=== PATIENT | male | born 1965 | race Caucasian/White ===

== ENCOUNTER 2018-04-05 19:48 | Emergency (ER) | payer MEDICAID ==
[~2018-04-05] VITALS: Ht 177.8 cm; Wt 100.0 kg
[~2018-04-05 19:48] MED LIST: ASPI-621 PO; ATOR40TA78 PO; GABA600T PO; GLIP5TAB10 PO; LISI5TAB7 PO; LOVA10TA PO; METF850T2 PO; NICO-485 TD
[2018-04-05] MEDS ORDERED: DIPHENHYDRAMINE 50 MG/ML, 1ML IVPush ONE (20:00)
[2018-04-05] MEDS ORDERED: METOCLOPRAMIDE 5 MG/ML, 2ML IVPush ONE (20:00)
[2018-04-05] MEDS ORDERED: SODIUM CHLORIDE 0.9% 1,000ML IVBOLUS ONE (20:00)
[2018-04-05] MEDS ORDERED: DIPHENHYDRAMINE 50 MG/ML, 1ML ONE (20:08)
[2018-04-05] MEDS ORDERED: METOCLOPRAMIDE 5 MG/ML, 2ML ONE (20:08)
[2018-04-05 20:17] LABS: BASOPHILS # (AUTO) 0.03 x10^3/uL (0-0.1); BASOPHILS % (AUTO) 0 % (0-1); EOSINOPHILS # (AUTO) 0.18 x10^3/uL (0-0.4); EOSINOPHILS % (AUTO) 2 % (1-7); LYMPHOCYTES % (AUTO) 21 % (22-44); MD NO; MEAN CORPUSCULAR HEMOGLOBIN 31.8 pg (27.5-34.5); MEAN CORPUSCULAR HGB CONC 33.7 g/dL (33.2-36.2); MEAN CORPUSCULAR VOLUME 94.4 fL (81-97); MEAN PLATELET VOLUME 9.7 fL (7.4-10.4); MONOCYTES # (AUTO) 0.74 x10^3/uL (0.2-0.8); MONOCYTES % (AUTO) 7 % (2-9); NEUTROPHILS % (AUTO) 70 % (42-75); PLATELET COUNT 183 x10^3/uL (130-400); RED BLOOD COUNT 5.39 x10^6/uL (4.38-5.82); RED CELL DISTRIBUTION WIDTH 13.2 % (9.4-14.8)
[2018-04-05 20:26] LABS: ALBUMIN 3.4 g/dL (3.4-5.0); ANION GAP 8 mmol/L (5-15); CALCIUM 8.7 mg/dL (8.5-10.1); CHLORIDE 106 mmol/L (98-107)
[2018-04-05 20:29] LABS: TROPONIN I < 0.015 ng/mL (0.000-0.045)
[2018-04-05] MEDS ORDERED: MORPHINE SULFATE 4 MG/ML, 1ML IVPush ONE (20:30)
[2018-04-05] MEDS ORDERED: MORPHINE SULFATE 4 MG/ML, 1ML ONE (20:37)
[2018-04-05] MEDS ORDERED: METHOCARBAMOL 750 MG TABLET PO ONE (21:00)
[2018-04-05] MEDS ORDERED: METHOCARBAMOL 750 MG TABLET ONE (21:02)
[2018-04-05 21:35] VITALS: BP 151/76
== END 2018-04-05 21:53 | disposition home or self-care (01) ==
LOC: ED 21:10
DX: S16.1XXA Strain of muscle, fascia and tendon at neck level, initial encounter (principal); M25.512 Pain in left shoulder; E78.5 Hyperlipidemia, unspecified; I10 Essential (primary) hypertension; E11.9 Type 2 diabetes mellitus without complications; X58.XXXA Exposure to other specified factors, initial encounter; Y93.89 Activity, other specified; Y99.8 Other external cause status; Y92.89 Other specified places as the place of occurrence of the external cause
CPT/HCPCS: 36415; 80048; 82040; 84484; 85025; 93005; 96374; 96375; 99285; J1200; J2765; J7030

== ENCOUNTER 2019-08-16 11:50 | Emergency (ER) | payer MEDICAID ==
[~2019-08-16] VITALS: Ht 175.3 cm; Wt 98.0 kg
[~2019-08-16 11:50] MED LIST changes: -ASPI-621 PO; +ASPI81TA45 PO; +BUTA1CAP5 PO; +DIVA500T17 PO; +FENO48TA17 PO; +LORA0.5T PO; +METF850T10 PO; -METF850T2 PO; +TRAZ50TA66 PO
[2019-08-16 12:35] LABS: BASOPHILS # (AUTO) 0.04 x10^3/uL (0-0.1); BASOPHILS % (AUTO) 1 % (0-1); EOSINOPHILS # (AUTO) 0.23 x10^3/uL (0-0.4); EOSINOPHILS % (AUTO) 3 % (1-7); LYMPHOCYTES # (AUTO) 1.72 x10^3/uL (1-3.4); LYMPHOCYTES % (AUTO) 22 % (22-44); MD NO; MEAN CORPUSCULAR HEMOGLOBIN 32.7 pg (27.5-34.5); MEAN CORPUSCULAR HGB CONC 33.3 g/dL (33.2-36.2); MEAN CORPUSCULAR VOLUME 98.1 fL (81-97); MEAN PLATELET VOLUME 9.9 fL (7.4-10.4); MONOCYTES # (AUTO) 0.65 x10^3/uL (0.2-0.8); MONOCYTES % (AUTO) 8 % (2-9); NEUTROPHILS % (AUTO) 66 % (42-75); PLATELET COUNT 172 x10^3/uL (130-400); RED BLOOD COUNT 5.83 x10^6/uL (4.38-5.82)
[2019-08-16 12:48] LABS: CHLORIDE 102 mmol/L (98-107)
[2019-08-16 12:54] LABS: ALBUMIN 3.7 g/dL (3.4-5.0); ANION GAP 5 mmol/L (5-15); CALCIUM 8.9 mg/dL (8.5-10.1); CREATININE 1.23 mg/dL (0.7-1.3)
--- NOTE | 2019-08-16 13:30 | NUR ---
COUTIERIER: PT IN CT, CT AWARE PT IS TO GO TO ROOM 4
--- NOTE | 2019-08-16 13:40 | NUR ---
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
--- NOTE | 2019-08-16 13:52 | NUR ---
53Y M COMES IN FOR DIZZINESS FOR LAST TWO DAYS, PT REPORTS HX OF CVA AND NEUROPATHY. PT STS VILLAGRAN 10/10 SHARP PAIN. PT A/O 4 CALL LIGHT WITHIN REACH. CONNECTED TO ALL MONITORS, VSJamin DESAI
[2019-08-16 13:53] VITALS: BP 127/84
== END 2019-08-16 14:52 | disposition home or self-care (01) ==
LOC: ED 14:45
DX: R42 Dizziness and giddiness (principal); R51 Headache; E11.9 Type 2 diabetes mellitus without complications; I10 Essential (primary) hypertension; F17.200 Nicotine dependence, unspecified, uncomplicated; E78.5 Hyperlipidemia, unspecified; R20.0 Anesthesia of skin
CPT/HCPCS: 36415; 70450; 80048; 82040; 85025; 93005; 99284

== ENCOUNTER 2019-09-05 12:22 | Emergency (ER) | payer MEDICAID ==
[~2019-09-05] VITALS: Ht 175.3 cm; Wt 105.0 kg
--- NOTE | 2019-09-05 12:33 | NUR ---
BIB [facility]. PT C/O INTERMITTENT R GROIN PAIN X4 DAYS, WORSE TODAY. DENIES INJURY. HX HERNIA WITH UNKNOWN SURGERIES. 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 CONNECTED TO MONITORING. CALL LIGHT IN REACH. AWAITING ORDERS AT THIS TIME.
[2019-09-05] MEDS ORDERED: DIPHENHYDRAMINE 50 MG/ML, 1ML ONE (12:49)
[2019-09-05] MEDS ORDERED: MORPHINE SULFATE 4 MG/ML, 1ML ONE (12:50)
--- NOTE | 2019-09-05 12:57 | NUR ---
MEDS ADMIN PER NOV. PT RESTING ON CUATE. GISELLE. MOM AT BEDSIDE.
[2019-09-05] MEDS ORDERED: DIPHENHYDRAMINE 50 MG/ML, 1ML IVPush ONE (13:00)
[2019-09-05] MEDS ORDERED: MORPHINE SULFATE 4 MG/ML, 1ML IVPush PRN (13:00)
[2019-09-05 13:02] LABS: BASOPHILS # (AUTO) 0.11 x10^3/uL (0-0.1); BASOPHILS % (AUTO) 1 % (0-1); EOSINOPHILS % (AUTO) 2 % (1-7); LYMPHOCYTES # (AUTO) 2.03 x10^3/uL (1-3.4); LYMPHOCYTES % (AUTO) 22 % (22-44); MD NO; MEAN CORPUSCULAR HEMOGLOBIN 32.7 pg (27.5-34.5); MEAN CORPUSCULAR HGB CONC 33.2 g/dL (33.2-36.2); MEAN CORPUSCULAR VOLUME 98.3 fL (81-97); MEAN PLATELET VOLUME 9.2 fL (7.4-10.4); MONOCYTES # (AUTO) 0.72 x10^3/uL (0.2-0.8); MONOCYTES % (AUTO) 8 % (2-9); NEUTROPHILS # (AUTO) 6.19 x10^3/uL (1.8-6.8); NEUTROPHILS % (AUTO) 67 % (42-75); PLATELET COUNT 171 x10^3/uL (130-400); RED BLOOD COUNT 5.52 x10^6/uL (4.38-5.82); RED CELL DISTRIBUTION WIDTH 13.4 % (9.4-14.8)
[2019-09-05 13:11] LABS: ALANINE AMINOTRANSFERASE 38 U/L (12-78); ALBUMIN 3.4 g/dL (3.4-5.0); ANION GAP 8 mmol/L (5-15); CALCIUM 9.2 mg/dL (8.5-10.1); CHLORIDE 104 mmol/L (98-107)
[2019-09-05 13:13] LABS: ALKALINE PHOSPHATASE 99 U/L (45-117); BILIRUBIN,TOTAL 0.7 mg/dL (0.2-1.0); TOTAL PROTEIN 7.9 g/dL (6.4-8.2)
--- NOTE | 2019-09-05 13:33 | NUR ---
URINE COLLECTED AND SENT TO LAB. [facility]
[2019-09-05 14:02] LABS: MICROSCOPIC AUTO
[2019-09-05 14:05] LABS: CULTURE INDICATED? NO
--- NOTE | 2019-09-05 14:19 | NUR ---
PT TO US.
[2019-09-05 15:00] VITALS: BP 126/71
--- NOTE | 2019-09-05 15:00 | NUR ---
PT RESTING ON CUATE. GISELLE. MOM AT BEDSIDE.
--- NOTE | 2019-09-05 15:01 | NUR ---
ALL RESULTS ARE BACK AT THIS TIME. CHART UP FOR RECHECK.
[2019-09-05] MEDS ORDERED: KETOROLAC 30 MG/1 ML ONE (15:21)
--- NOTE | 2019-09-05 15:26 | NUR ---
MEDS ADMIN PER NOV. PT SITTING SIDE OF BED. GISELLE.
[2019-09-05] MEDS ORDERED: KETOROLAC 30 MG/1 ML IVPush ONE (15:30)
--- NOTE | 2019-09-05 16:13 | NUR ---
IV DOCUMENTED TRIPLE LUMEN INCORRECTLY. IV INSERTED WAS PERIPHERAL SINGLE LUMEN
== END 2019-09-05 15:59 | disposition home or self-care (01) ==
LOC: ED 14:51
DX: I86.1 Scrotal varices (principal); R10.31 Right lower quadrant pain; N43.3 Hydrocele, unspecified; I10 Essential (primary) hypertension; E11.9 Type 2 diabetes mellitus without complications
CPT/HCPCS: 36415; 76870; 80053; 81001; 85025; 87491; 87591; 96374; 96375; 99284; J1200; J1885; J2270

== ENCOUNTER 2019-09-12 01:38 | Emergency (ER) | payer MEDICAID ==
[~2019-09-12] VITALS: Ht 175.3 cm; Wt 105.0 kg
[2019-09-12] MEDS ORDERED: MORPHINE SULFATE 4 MG/ML, 1ML ONE ×2 (02:50→04:23)
[2019-09-12] MEDS ORDERED: ONDANSETRON 2MG/ML, 2ML ONE (02:50)
[2019-09-12] MEDS ORDERED: MORPHINE SULFATE 4 MG/ML, 1ML IVPush ONE ×2 (03:00→04:30)
[2019-09-12] MEDS ORDERED: ONDANSETRON 2MG/ML, 2ML IVPush ONE (03:00)
[2019-09-12 03:03] LABS: BASOPHILS # (AUTO) 0.04 x10^3/uL (0-0.1); BASOPHILS % (AUTO) 0 % (0-1); EOSINOPHILS # (AUTO) 0.33 x10^3/uL (0-0.4); EOSINOPHILS % (AUTO) 3 % (1-7); LYMPHOCYTES # (AUTO) 2.79 x10^3/uL (1-3.4); LYMPHOCYTES % (AUTO) 26 % (22-44); MD NO; MEAN CORPUSCULAR HEMOGLOBIN 33.1 pg (27.5-34.5); MEAN CORPUSCULAR HGB CONC 33.6 g/dL (33.2-36.2); MEAN CORPUSCULAR VOLUME 98.5 fL (81-97); MONOCYTES # (AUTO) 0.83 x10^3/uL (0.2-0.8); MONOCYTES % (AUTO) 8 % (2-9); NEUTROPHILS # (AUTO) 6.76 x10^3/uL (1.8-6.8); NEUTROPHILS % (AUTO) 63 % (42-75); PLATELET COUNT 186 x10^3/uL (130-400); RED BLOOD COUNT 5.12 x10^6/uL (4.38-5.82); RED CELL DISTRIBUTION WIDTH 13.6 % (9.4-14.8)
[2019-09-12 03:16] LABS: ANION GAP 5 mmol/L (5-15); CALCIUM 8.3 mg/dL (8.5-10.1); CHLORIDE 101 mmol/L (98-107); CREATININE 1.04 mg/dL (0.7-1.3)
[2019-09-12 03:19] LABS: CREATINE KINASE, TOTAL 65 U/L (39-308)
[2019-09-12] MEDS ORDERED: SODIUM CHLORIDE 0.9%, 500ML IVBOLUS ONE (03:30)
[2019-09-12 06:13] VITALS: BP 144/91
[2019-09-12] MEDS ORDERED: OMNIPAQUE 350 MG/ML, 100ML BOTTLE ONE (20:21)
== END 2019-09-12 06:16 | disposition home or self-care (01) ==
LOC: ED 02:43
DX: M25.551 Pain in right hip (principal); M79.651 Pain in right thigh; R10.2 Pelvic and perineal pain; I10 Essential (primary) hypertension; E11.9 Type 2 diabetes mellitus without complications; F17.210 Nicotine dependence, cigarettes, uncomplicated
CPT/HCPCS: 36415; 75635; 80048; 82550; 85025; 96374; 96375; 96376; 99284; J2270; J2405; J7040; Q9967

== ENCOUNTER 2020-05-08 14:57 | Emergency (ER) | payer MEDICAID ==
[~2020-05-08] VITALS: Ht 175.3 cm; Wt 92.0 kg
[~2020-05-08 14:57] MED LIST changes: +FENO48TA10 PO; -FENO48TA17 PO
--- NOTE | 2020-05-08 15:06 | NUR ---
PT REFUSED TO CHANGE.
--- NOTE | 2020-05-08 15:06 | NUR ---
LIANET. REPORT RECEIVED FROM EMS. PT C/O LEFT LEG PAIN/SWELLING. PT HAD BACK SURGERY X 2 IN JANUARY. UNABLE TO AMB SINCE BACK SURGERY. PT USES WALKER/WHEELCHAIR AT HOME. PT DENIES ANY OTHER SX. PT'S AOX4. RESPS EVEN AND UNLABORED. BP/SPO2 MONITORS IN PLACE. CALL LIGHT WITHIN REACH.
--- NOTE | 2020-05-08 15:13 | NUR ---
PA AT BEDSIDE EVALUATING AT THIS TIME.
[2020-05-08] MEDS ORDERED: HYDROmorphone 1 MG/ML, 1ML INJ IM ONE (15:30)
[2020-05-08] MEDS ORDERED: HYDROmorphone 1 MG/ML, 1ML INJ ONE (15:40)
--- NOTE | 2020-05-08 15:46 | NUR ---
PT MEDICATED PER EMAR. PT TOLERATED WELL.
--- NOTE | 2020-05-08 16:52 | NUR ---
WARM BLANKET PROVIDED PER REQUEST AT THIS TIME.
--- NOTE | 2020-05-08 17:46 | NUR ---
EDMD AT BEDSIDE AT THIS TIME.
--- NOTE | 2020-05-08 17:55 | NUR ---
PIV EST ON L HAND WITH NO COMPLICATIONS. PT TOLERATED WELL.
[2020-05-08] MEDS ORDERED: SODIUM CHLORIDE FLUSH 10ML SYR IVF ONE (18:00)
[2020-05-08] MEDS ORDERED: KETAMINE 10 MG/ML, 20ML IV ONE (18:00)
[2020-05-08] MEDS ORDERED: KETAMINE 10 MG/ML, 20ML ONE (18:07)
--- NOTE | 2020-05-08 18:18 | NUR ---
PT MEDICATED PER EMAR. PT TOLERATED WELL.
--- NOTE | 2020-05-08 18:57 | NUR ---
REPORT GIVEN TO KELBY JIMENEZ.
--- NOTE | 2020-05-08 19:01 | NUR ---
RECEIVED BS REPORT FROM BARBARA QUICK TO ASSUME CARE OF PT. AT THIS TIME. PT. FAMILY AT BS. THEY ARE REQUESTING TO SPEAK WITH . DR. ZAMORA AWARE. AWAITING DISPO.
[2020-05-08 20:00] VITALS: BP 115/67
== END 2020-05-08 20:06 | disposition home or self-care (01) ==
LOC: ED 18:40
DX: G89.29 Other chronic pain (principal); M79.662 Pain in left lower leg; E78.5 Hyperlipidemia, unspecified; I10 Essential (primary) hypertension; E11.9 Type 2 diabetes mellitus without complications; Z86.718 Personal history of other venous thrombosis and embolism
CPT/HCPCS: 96372; 96374; 99285; J1170

== ENCOUNTER 2020-05-12 16:18 | Emergency (ER) | payer MEDICAID ==
[~2020-05-12] VITALS: Ht 182.9 cm; Wt 100.0 kg
--- NOTE | 2020-05-12 16:29 | NUR ---
presents with continued lle pain "i think my blood clot is still there. I can't put weight on my foot." +3 swelling from knee down, foot warm. dopplerable pulse Seen here for same- referred to ketamine clinic. Patient did not go "that stuff makes me loopy." Has been compliant with xartelto dosing
[2020-05-12] MEDS ORDERED: ONDANSETRON ODT 4 MG PO ONE (17:00)
[2020-05-12] MEDS ORDERED: ONDANSETRON ODT 4 MG ONE (17:08)
--- NOTE | 2020-05-12 17:13 | NUR ---
Medicated per emar for nausea Ultrasound called to expedite exam Patient demanding pain meds "Is the stupid going to come in? I need some f%$# pain meds. I tell you what I'm not leaving until I do." -Provider made aware
[2020-05-12] MEDS ORDERED: HYDROcodone/APAP 5/325 TABLET ONE (19:17)
[2020-05-12 19:24] VITALS: BP 152/81
[2020-05-12] MEDS ORDERED: HYDROcodone/APAP 5/325 TABLET PO ONE (19:30)
== END 2020-05-12 19:40 | disposition home or self-care (01) ==
LOC: ED 17:50
DX: I82.512 Chronic embolism and thrombosis of left femoral vein (principal); I82.532 Chronic embolism and thrombosis of left popliteal vein; I82.542 Chronic embolism and thrombosis of left tibial vein; I10 Essential (primary) hypertension; E11.9 Type 2 diabetes mellitus without complications; E78.5 Hyperlipidemia, unspecified; F17.200 Nicotine dependence, unspecified, uncomplicated
CPT/HCPCS: 93971; 99284; Q0162

== ENCOUNTER 2020-07-06 13:42 | Emergency (ER) | payer MEDICAID ==
[~2020-07-06] VITALS: Ht 175.3 cm; Wt 100.2 kg
[2020-07-06 13:52] VITALS: BP 142/82
--- NOTE | 2020-07-06 13:55 | NUR ---
INTENSE LLE PAIN INCREASED OVER THE LAST TWO DAYS. PT WITH KNOWN DVT X 2 IN LLE. PT ON COUMADIN. GIVEN 10MG MSO4 ORANGE GROWER WITH NO RELIEF. PT MOANING IN PAIN. STATES 07/08 PT TO BP, CONT PULSE OX.
== END 2020-07-06 14:54 | disposition home or self-care (01) ==
LOC: ED 14:30
DX: I82.512 Chronic embolism and thrombosis of left femoral vein (principal); I82.522 Chronic embolism and thrombosis of left iliac vein; I10 Essential (primary) hypertension; E11.9 Type 2 diabetes mellitus without complications; E78.5 Hyperlipidemia, unspecified; F17.200 Nicotine dependence, unspecified, uncomplicated
CPT/HCPCS: 99283